=== PATIENT | female | born 1960 | race Two or more races ===

== ENCOUNTER 2023-03-23 11:26 | Emergency (ER) | payer OTHER, SELFPAY ==
[2023-03-23 11:30] VITALS: BP 133/77
[2023-03-23] MEDS: TYLENOL 650 MG PO (12:38)
[2023-03-23 12:46] LABS: Urine Albumin Negative (Neg - Trace); Urine Bilirubin Negative (Negative); Urine Character Clear (Clear); Urine Color Yellow; Urine Glucose Negative (Negative); Urine Ketone Negative (Negative); Urine Leukocyte 1+ (Negative); Urine Nitrite Negative (Negative); Urine Occult Blood Negative (Negative); Urine Urobilinogen Negative (Neg - 1+)
[2023-03-23 12:55] LABS: Urine Bacteria Few (Negative); Urine Red Blood Cell 0-2 /HPF (0-2)
[2023-03-23 12:56] LABS: Urine White Cell 0-2 /HPF (0-5)
--- NOTE | 2023-03-23 14:26 | ED.GENMED ---
History of Present Illness
General
Chief Complaint: Fall
Source: patient and family
Exam Limitations: none
Time Seen by Provider: 03/23/23 11:45
Nursing documentation reviewed up to this point in time: agreed with
Travel History
Have you had any contact with someone who has COVID-19?: No
Do you have any symptoms of coronavirus? Fever > 100 degrees, chills, cough, shortness of breath, sore throat, loss of taste or smell, muscle aches, or headache?: No
History of Present Illness
History of Present Illness:
pt is a 62 y/o F with no chronic medical problems
says that 3-4 weeks ago during the last snow storm, pt fell backwards onto her back and she has had back pain on the right side lower ribs and right lateral back since. it gets better and worse at times. she doesn't like to take medication so she
usually doesn't but has tried tylenol or motrin for pain. she has not had any radiation of pain down legs, weakness, numbness, urinary sypmtoms like incontinence, hematuria, dysuria.
she does have a little nasal congestion which is new
no fever, chills, cough, cold, cp, sob.
pain is worse with walking, changing position, bendign
she normally can do housework but she is having a lot of pain with bending over
the pain doesn't wrap around her abdomen.
Past History
Past History
ED Past Medical History: None
ED Past Surgical History: None
Social History
Tobacco: Non-smoker
Alcohol: None
Drug: None
Personal: Single
Living: with family
Review of Systems
Review of Systems
Allergies reviewed?: Yes
All Other Systems: Not applicable
Phy Exam
Physical Exam
Physical Exam:
GENERAL: Alert , in no apparent distress, comfortable at rest
HEAD: NCAT
NECK: no midline tenderness, active ROM intact, no paraspinal muscle tenderness;
CARDIAC: Regular rate and rhythm, no edema
LUNGS: Clear breath sounds bilaterally, no acute respiratory distress, no wheezes/rales/rhonchi
ABDOMEN: Soft, without focal tenderness, no r/g, no cvat, normal bowel sounds, nondistended
NEUROLOGICAL: Alert and oriented, no focal neuro deficits, CN intact, 5/5 strength, sensation intact, ambulation slight limp left leg
SKIN: Warm and dry, no bruising
MUSCULOSKELETAL: No edema, well perfused. normal inspectio nof hips and legs;
pt able to flex the hips
Back:pt has pain with movement
limited flexion No midline tenderness, mild dextroscoliosis, mild right paraspinal and lateral lower thoracic and upper L lateral tenderness, no bruising; no swelling
negative straight leg raise Bilaterally
PSYCH: Normal and appropriate interaction.
Course
Orders/Labs/Results
Orders:
Orders
03/23/23 12:11
Acetaminophen [Tylenol] 650 mg PO NOW STA
CR Ribs-right 3 Vw W/pa Chest* Urgent
Comment:
Reason For Exam: fall 1 mo ago, right lower rib tendenress
CR Thoracic Spine 3 Views Urgent
Reason For Exam: back pain after fall
Lumbar Spine Complete, 4 View [CR Lumbar Spine Comp Min 4 Vw*] Urgent
Comment:
Reason For Exam: lower back pain fater fall backwards
03/23/23 12:38
Urinalysis Reflex To Culture Urgent
Date Specimen was Collected: 03/23/23
Time Specimen was Collected: 12:29
Urine Microscopic Reflex Cult Urgent
Urine Culture Urgent
JIMBO Source: U
Specimen Description:
Date Specimen was Collected: 03/23/23
Time Specimen was Collected: 12:29
03/23/23 15:50
Lidocaine [Lidocaine 4% Patch] 1 patch TOPICAL NOW STA
Abnormal Lab Results
03/23/23
12:38
Leukocyte Esterase Rfl 1+ A
(Negative)
Urine Bacteria (Reflex) Few A
(Negative)
Vital Signs
Initial and Last Documented VS:
Initial Vital Signs
Temp Pulse Resp BP Pulse Ox
97.9 F 73 16 133/77 98
03/23/23 11:30 03/23/23 11:30 03/23/23 11:30 03/23/23 11:30 03/23/23 11:30
Last Documented Vital Signs
Temp Pulse Resp BP Pulse Ox
97.8 F 68 16 111/78 99
03/23/23 15:58 03/23/23 15:58 03/23/23 15:58 03/23/23 15:58 03/23/23 15:58
MDM/Problems Addressed
Differential Diagnosis Includes:
compression fracture, rib fracture, uti
MDM/Problems Addressed:
62 y/o f very healthy
from [facility] today after having back pain from a fall about 1 mo ago
she doesn't like taking medication so she really hasn't tried much, occasionally tylenol
no weakness in lgegs, no abdomianl p[ain, no chest pain ,no sob
no rash or fever
pain seems to be limiting her ability to bend over
on exam sh ehas tenderness to right lateral lower thoracic region, normal skin, no bruising
no abdomianl tendenress
neg straight leg raise, normal sensation and strength
ambulatory but slowly due to pain
using a cane
ua shows trace LE and trace bacteria but no sypmtoms
will await cultlure
no blood in urine.
xrays c/w moderate compression fx of t12 which apepars like in the correct location for pain
she has no signs of cauda equina
pt was offered stronger pain medication but declined
tylenol/motrin/lidocaine patch
f/u with pain management
pt
*Critical Care Note
Total Time (30-74mins, 75-104mins- exclusive of procedures): Not Applicable
ED Attending Note
-
Portions of this chart may have been created with voice recognition software.� Occasional wrong word or��sound alike� substitutions may have occurred due to the inherent limitations of voice recognition software.
Discharge Plan
Departure
Patient Disposition: Home (Routine Discharge)
Date of Disposition: 03/23/23
Time of Disposition: 18:06
Patient with high blood pressure during this ER visit?: No
Condition: Fair
Covid-19: Not Applicable
Discharge Problem:
Compression fracture
Instructions: Vertebral Compression Fracture (DC)
Prescriptions:
New
lidocaine 5 % adhesive patch,medicated
1 patch topical DAILY PRN (Reason: BACK PAIN) Qty: 15 0RF
ibuprofen 400 mg tablet
400 mg PO [id number] PRN (Reason: Pain) Qty: 10 0RF
acetaminophen 325 mg capsule
650 mg PO Q6H PRN (Reason: Pain) Qty: 30 0RF
Referrals:
Waldo Rae MD [Active] - Follow up in 5-7 days (PAIN SPECIALIST)
Chicho Zimmerman MD [Active] - Follow up in 5-7 days (ORTHOPEDIC SPINE)
NONE,* [Family Provider] -
Activity Restrictions/Additional Instructions:
THERE IS A COMPRESSION OF T12 IN YOUR BACK (VERTEBRAE)
THIS CAN BE PAINFUL
YOU SHOULD OFLLOW UP WITH THE CLINIC AND HAVE REFERRAL TO PHYSICAL THERAPY
IN THE MEANTIME TAKE TYLENOL 2-3 TIMES A DAY
YOU CAN ALSO HALI EMOTRIN EVERY 8HOURS NEEDED FOR PAIN
LIDOCAINE PATCH 12 HOURS ON 12 HOURS OFF NEEDED
FOLLOW UP WITH DR. RAE WHO IS A PAIN SPECIALIST TO HELP WITH PAIN MANAGEMENT
YO UCAN ALSO SEE AN ORTHOPEDIC LEAD TEACHER
USE A CANE OR WALKER TO HELP YOU WALK
RETURN FOR: WEAKNESS IN LEGS, VOMITING, FEVER, CHILLS, URINARY INCONTINENCE, NUBMNESS/TINGLING IN THE LEGS OR ANY COCNERNS.
Interventions
Interventions:
*Risk Screen - Suicide Last Done: 03/23/23 13:02
*General Assessment Last Done: 03/23/23 13:02
*Neglect/Abuse Screening Last Done: 03/23/23 13:02
*ED COVID-19 Vaccine History Last Done: 03/23/23 11:30
*Nursing Disposition Last Done: 03/23/23 18:14
ED-Musculoskeletal Assessment Last Done: 03/23/23 13:02
ED- Neurological Assessment Last Done: 03/23/23 13:02
ED-Skin Assessment Last Done: 03/23/23 13:02
Discharge Date and Time
Discharge Date/Time: 03/23/23 18:14
[2023-03-23 15:58] VITALS: BP 111/78
[2023-03-23] MEDS: LIDOCAINE 4% PATCH 1 PATCH TOPICAL (15:59)
== END 2023-03-23 18:14 | disposition home or self-care (01) ==
LOC: EMR 11:26
PROVIDERS: Physician Assistant; EMERGENCY PHYSICIAN Emergency Medicine
DX: S22.080A Wedge compression fracture of T11-T12 vertebra, initial encounter for closed fracture (principal); W19.XXXA Unspecified fall, initial encounter
CPT/HCPCS: 99283; 71101; 72072; 72110; 81003; 81015; 87086

== ENCOUNTER 2023-05-09 16:16 | Outpatient (RCR) | payer SELFPAY | END 2023-05-09 23:59 | disposition home or self-care (01) | LOC: RPT 16:16 | PROVIDERS: ATTENDING PHYSICIAN Nurse Practitioner Acute Care | DX: S22.000G Wedge compression fracture of unspecified thoracic vertebra, subsequent encounter for fracture with delayed healing (principal); Z73.6 Limitation of activities due to disability | CPT/HCPCS: 97110; 97162 ==